=== PATIENT | female | born 1975 ===

== ENCOUNTER 2023-08-19 14:08 | Outpatient (CLI) | payer BC, SELFPAY ==
--- NOTE | 2023-08-19 14:30 | USCV_ITS ---
Kathleen Rousseau Age: 47 Gender: F : 1975 Exam Date: 08/19/2023 14:57 Ordering Phys: Malini RousseauP [employer] Technologist: EMILI [place] [facility] [place]: MVP, irregular HB, fatigue BP: 130 / 88 HR: 71 Rhythm: Sinus Technical Quality: Good MEASUREMENTS (Male / Female) Normal Values 2D ECHO LV Diastolic Diameter PLAX 4.8 cm 4.2 - 5.9 / 3.9 - 5.3 cm LV Systolic Diameter PLAX 3.4 cm IVS Diastolic Thickness 1.1 cm 0.6 - 1.0 / 0.6 - 0.9 cm IVS Systolic Thickness 1.3 cm LVPW Diastolic Thickness 0.6 cm 0.6 - 1.0 / 0.6 - 0.9 cm LVPW Systolic Thickness 1.3 cm LVOT Diameter 2.2 cm LV Ejection Fraction 2D Teich 54.6 % LV Ejection Fraction MOD 2C 31.7 % LV Ejection Fraction 2C AL 31.4 % LA Diameter 2.7 cm LA Width 3.4 cm LA Height 5.2 cm RA Width 3.4 cm RA Height 3.9 cm Aorta at Sinotubular Diameter 3.2 cm IVC Diameter 0.9 cm M-MODE Aortic Annulus Diameter 3.0 cm LA Ao Ratio MM 1.1 MV E Point Septal Separation 0.4 cm DOPPLER AV Peak Velocity 137.0 cm/s LVOT Peak Velocity 83.0 cm/s AV Area Cont Eq vti 3.0 cm squared AV Area Cont Eq pk 2.3 cm squared MV Peak Velocity 89.0 cm/s MV Area PHT 5.4 cm squared Mitral E to A Ratio 0.9 MV E' Velocity 40.0 cm/s Mitral E to MV E' Ratio 5.1 Mitral E to LV E' Lateral Ratio 4.7 Mitral E to LV E' Septal Ratio 5.4 TR Peak Velocity 100.0 cm/s TR Peak Gradient 4.0 mmHg Right Atrial Pressure 5.0 mmHg Pulmonary Artery Systolic Pressu 9.0 mmHg PV Peak Velocity 79.0 cm/s RV Acceleration Time 0.2 s RV Ejection Time 0.3 s RV AcT/ET 0.5 FINDINGS Left Ventricle Left ventricle is normal in size. LV systolic function is normal with EF of 50 to 55%. No regional wall motion abnormalities are seen. Right Ventricle Normal in size and function Right Atrium Normal in size Left Atrium Normal in size Mitral Valve Mild mitral valve prolapse seen. Mild mitral regurgitation. Aortic Valve Structurally normal aortic valve. No significant stenosis or regurgitation seen. Tricuspid Valve Trace tricuspid regurgitation. Insufficient TR jet to calculate RVSP. Pulmonic Valve Not well visualized Pericardium Normal Aorta Normal in size IVC Normal CONCLUSIONS LV systolic function is normal with EF of 50 to 55%. Mild mitral valve prolapse seen. Mild mitral regurgitation No comparison studies are available Todd Page MD (Electronically Signed) Final Date: 19 August 2023 18:10 S
== END 2023-08-19 14:09 | disposition home or self-care (01) ==
DX: I34.1 Nonrheumatic mitral (valve) prolapse (principal); I49.9 Cardiac arrhythmia, unspecified; I99.8 Other disorder of circulatory system; R53.83 Other fatigue; R06.02 Shortness of breath; I34.0 Nonrheumatic mitral (valve) insufficiency
CPT/HCPCS: 93306